=== PATIENT | female | born 2000 | race Caucasian/White ===

== ENCOUNTER 2019-11-15 23:53 | Emergency (ER) | payer OTHER ==
[~2019-11-15] VITALS: Ht 167.7 cm; Wt 72.5 kg
--- OUTSIDE RECORDS SUMMARY | 2019-11-15 23:59 | XMS REPORT | Continuity of Care Document ---
Author Organization Unknown Address Unknown Phone Unavailable Allergies Active Description Code Type Severity Reaction Onset Reported/Identified Relationship to Patient Clinical Status Yes No Known Drug Allergy NKDA N/A N/A 05/06/2019 Medications There is no data. 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 P . COMPREH. MOD COMP. 12/17/2018 60425 UA D IPSTICK WITH MICROSCOPY 05/06/2019 14910 HCG URINE KIT 05/06/2019 45306 EST. EXPANDED LOW COMP. 05/06/2019 Results Test Result Range CBC - 12/24/18 08:00 HEMATOCRIT, AUTOMATED COUNT, BLOOD 33.8 % 34.0-46.6 WBC, AUTO, BLOOD 3.4 x10E3/uL 3.4-10.8 HEMOGLOBIN (HB), BLOOD 11.1 g/dL 11.1-15 .9 PLATELETS, AUTO, BLOOD 209 x10E3/uL 150- 450 MCV, BLOOD 86 fL 79-97 RBC COUNT, BLOOD 3.93 x10E6/uL 3.77-5.28 ERYTHROCYTE MEAN CORPUSCULAR HEMOGLOBIN [ENTITIC MASS] BY AUTOMATED COUNT 28.2 pg 26.6-33.0 ERYTHROCYTE MEAN CORPUSCULAR HEMOGLOBIN CONCENTRATION [MASS/VOLUME] BY AUTOMATED COUNT 32.8 g/dL 31.5-35.7 ERYTHROCYTE DISTRIBUTION WIDTH [RATIO] BY AUTOMATED CO UNT 15.3 % 12.3-15.4 NUCLEATED ERYTHROCYTES/100 LEUKOCYTES [R ATIO] IN BLOOD BY AUTOMATED COUNT ELECTRONICS RESEARCH ENGINEER NRG BMP, SERUM OR PLASMA - 12/24/18 08:00 CALCIUM, SERUM OR PLASMA 9.4 mg/dL 8.7-1 0.2 CO2, (CARBON DIOXIDE), TOTAL, SERUM OR PLASMA 22 m mol/L 20- 29 CHLORIDE, SERUM OR PLASMA 107 mmol/L 96- 106 CREATININE, SERUM OR PLASMA 0.64 mg/dL 0 .57-1.00 GLUCOSE, SERUM OR PLASMA 90 mg/dL 65-99 SODIUM, SERUM OR PLASMA 141 mmol/L 134-1 44 BUN (BLOOD UREA NITROGEN), SERUM OR PLASMA 9 mg/dL 6-20 BUN:CREATININE RATIO, SERUM 14 9- 23 EGFR IF NONAFRICN AM 130 mL/min/1.73 >59 EGFR IF AFRICN AM 150 mL/min/1.73 >5 9 POTASSIUM [MOLES/VOLUME] IN SERUM OR PLASMA 4.3 mm ol/L 3.5- 5.2 LIPID PANEL, SERUM - 12/24/18 08:00 LDL, CALCULATED, SERUM 78 mg/dL 0-109 HDL CHOLESTEROL, SERUM 40 mg/dL >39 CHOLESTEROL, TOTAL, SERUM 140 mg/dL 100- 169 TRIGLYCERIDES, SERUM 109 mg/dL 0-89 CHOLESTEROL IN VLDL [MASS/VOLUME] IN SERUM OR PLASMA B Y CALCULATION 22 mg/dL 5-40 COMMENT: ELECTRONICS RESEARCH ENGINEER NRG TSH, ULTRA-SENSITIVE, SERUM - 12/24/18 0 8:00 TSH, ULTRA-SENSITIVE, SERUM 3.080 uIU/mL 0.450-4.500 URINALYSIS, DIPSTICK - 05/06/19 11:15 Color Yellow NRG Nitrite negative NRG Leukocytes Negative NRG Protein Trace NRG pH 6.0 NRG Blood Negative NRG Ketone Negative NRG Glucose Negative NRG Bilirubin Negative NRG SPECIFIC GRAVITY 1.025 NRG UROBILINOGEN Negative NRG Appearance Slightly cloudy NRG TEST, URINE - 05/06/19 11:43 HCG negative NRG Encounters ACCT No. Visit Date/Time Discharge Status Pt. Type Provider Facility Loc./Unit Complaint [id number] 03/27/2019 18:20:00 03/27/2019 23:59: 59 [facility] [id number] 05/06/2019 10:54:00 05/06/2019 23:59:5 9 CLS Outpatient JEANNINE RENNER [facility] [id number] 12/17/2018 08:47:00 12/17/2018 23:59:5 9 [facility] Outpatient JEANNINE RENNER [facility]
[2019-11-16] VITALS: BP 134/85
--- NOTE | 2019-11-16 00:14 | ED Back Pain ---
General Stated Complaint: L BP, UTI Source of Information: Patient Exam Limitations: No Limitations History of Present Illness Date Seen by Provider: Nov 16, 2019 Time Seen by Provider: 00:02 Initial Comments the patient presents to ER by private conveyance with chief complaint of some low back pain starting in her left her lumbar side about a week ago. Now is radiated more to her right side, right groin and she has dysuria. She has a history of a lot of UTIs and thinks that was going on. No history of kidney stones. No fevers but she doesn't chills yesterday. No nausea or vomiting. No abdominal surgeries or abdominal pain. No discharge or dyspareunia. She takes control pills but no other medications. Allergies and Home Medications Allergies Coded Allergies: No Known Drug Allergies (Unverified , 11/16/19) Patient Home Medication List Home Medication List Reviewed: Yes Review of Systems Constitutional: No chills, No fever, No malaise EENTM: No ear discharge, No ear pain Respiratory: No cough, No short of breath Cardiovascular: No chest pain, No edema Gastrointestinal: No abdominal pain, No diarrhea, No dysphagia, No nausea, No vomiting Genitourinary: No discharge; dysuria : No Control/STD Prophylaxis: BC Pills Musculoskeletal: back pain; No joint pain All Other Systems Reviewed Negative Unless Noted: Yes Past Rsbiiyc-Jevhmr-Yaxdcz Hx Patient Social History Alcohol Use: Denies Use Recreational Drug Use: No Smoking Status: Never a Smoker Recent Foreign Travel: No Contact w/Someone Who Travel: No (N) Physical Exam Vital Signs Vital Signs - First Documented 11/16/19 00:00 Temp 37.4 Pulse 82 Resp 20 B/P (MAP) 134/85 (101) Pulse Ox 97 O2 Delivery Room Air Capillary Refill : Height, Weight, BMI Height: '" Weight: lbs. oz. kg; BMI Method: General Appearance: No Apparent Distress, WD/WN HEENT: PERRL/EOMI, Pharynx Normal, Moist Mucous Membranes Neck: Full Range of Motion, Normal Inspection Cardiovascular: Regular Rate, Rhythm, Normal Peripheral Pulses Respiratory: No Accessory Muscle Use, No Respiratory Distress Gastrointestinal: Normal Bowel Sounds, Non Tender, Soft Back: Normal Inspection; No CVA Tenderness (L); CVA Tenderness (R) Extremity: Normal Capillary Refill, Normal Inspection, No Pedal Edema Neurologic/Psychiatric: Alert, Oriented x3 Skin: Normal Color, Warm/Dry; No Rash Progress/Results/Core Measures Results/Orders Lab Results Laboratory Tests Test 11/16/19 00:02 Range/Units Urine Color YELLOW Urine Clarity TURBID Urine pH 6.5 5-9 Urine Specific [place] 1.025 H 1.016-1.022 Urine Protein 2+ H NEGATIVE Urine Glucose (UA) NEGATIVE NEGATIVE Urine Ketones NEGATIVE NEGATIVE Urine Nitrite NEGATIVE NEGATIVE Urine Bilirubin NEGATIVE NEGATIVE Urine Urobilinogen 0.2 < = 1.0 MG/DL Urine Leukocyte Esterase 2+ H NEGATIVE Urine RBC (Auto) 2+ H NEGATIVE Urine RBC 10-25 H /HPF Urine WBC 5-10 H /HPF Urine Squamous Epithelial Cells 2-5 /HPF Urine Crystals NONE /LPF Urine Bacteria MODERATE H /HPF Urine Casts NONE /LPF Urine Mucus NEGATIVE /LPF Urine Yeast FEW H /HPF Urine Culture Indicated YES My Orders Orders - FÉLIX BRASHER Ua Culture If Indicated (11/15/19 23:57) Urine Bedside (11/15/19 23:57) Urine Culture (11/16/19 00:02) Cephalexin Capsule (Keflex Capsule) (11/16/19 01:00) Vital Signs/I&O 11/16/19 00:00 Temp 37.4 Pulse 82 Resp 20 B/P (MAP) 134/85 (101) Pulse Ox 97 O2 Delivery Room Air Progress Progress Note #1: Time: 00:13 Progress Note Urinalysis. Bedside presence is negative. Progress Note #2: Time: 00:58 Progress Note UTI possibly heading towards pyelonephritis. Aseptic and does not extend hospital. We did offer her a shot of Rocephin which she declined. We'll put her on Keflex for 10 days. We'll give her a dose of Keflex 500 mg here in the ER. Departure Impression Primary Impression: Urinary tract infection Qualified Codes: N10 - Acute pyelonephritis Disposition: 01 HOME, SELF-CARE Condition: Stable Departure-Patient Inst. Decision time for Depature: 00:59 Referrals: NO,LOCAL PHYSICIAN (PCP/Family) Primary Care Physician Patient Instructions: Urinary Tract Infection, Adult (DC) Add. Discharge Instructions: Keflex 500 mg twice a day with food and water. Drink lots of fluids. Return to the ER for having intractable pain despite Tylenol 1000 mg every 8 hours, high fever especially above 102.5 or other worrisome symptoms. Scripts Cephalexin (Keflex) 500 Mg Capsule 500 MG PO BID for 10 Days, #20 CAP 0 Refills Prov: FÉLIX BRASHER 11/16/19 FÉLIX BRASHER Nov 16, 2019 00:14
[2019-11-16 00:27] LABS: BILIRUBIN,URINE NEGATIVE (NEGATIVE); CLARITY,URINE TURBID; COLOR,URINE YELLOW; GLUCOSE, URINE (UA) NEGATIVE (NEGATIVE); KETONES,URINE NEGATIVE (NEGATIVE); LEUKOCYTE ESTERASE ,URINE 2+ (NEGATIVE); NITRITE,URINE NEGATIVE (NEGATIVE); PH,URINE 6.5 (5-9); PROTEIN,URINE 2+ (NEGATIVE)
[2019-11-16 00:40] LABS: BACTERIA,URINE MODERATE /HPF; YEAST,URINE FEW /HPF
[2019-11-16] MEDS ORDERED: CEPHALEXIN 250 MG (KEFLEX) CAP PO ONE (01:00)
[2019-11-16] MEDS ORDERED: CEPH-507 PO (01:01)
== END 2019-11-16 01:05 | disposition home or self-care (01) ==
LOC: ER 23:56
DX: N39.0 Urinary tract infection, site not specified (principal)
CPT/HCPCS: 81000; 84703; 87077; 87088; 99283